=== PATIENT | female | born 1980 | race Two or more races ===

== ENCOUNTER 2023-06-04 18:44 | Emergency (ER) | payer MEDICAID ==
[~2023-06-04] VITALS: Ht 172.7 cm; Wt 112.0 kg
[2023-06-04 19:48] LABS: Basophils # (auto) 0 10 ^3/uL (0-0.2); Eosinophils # (auto) 0.1 10 ^3/uL (0-0.8); Hemoglobin 10.2 g/dL (12.2-16.2); Lymphocytes # (auto) 2.5 10 ^3/uL (0.4-5.4); Mean Corpuscular Hgb Conc. 30.3 g/dL (32.0-36.0); Monocytes # (auto) 0.6 10 ^3/uL (0-1.3); Nucleated Red Blood Cells % 0.1 %
[2023-06-04 19:50] LABS: Basophils % (auto) 0.5 % (0.0-2.0); Eosinophils % (auto) 1.5 % (0.0-7.0); Hematocrit 33.8 % (36.0-46.0); Lymphocytes % (auto) 34.3 % (10.0-50.0); Mean Corpuscular Hemoglobin 20.7 pg (28.0-32.0); Mean Corpuscular Volume 68.4 fL (80.0-100.0); Monocytes % (auto) 7.9 % (0.0-12.0); Neutrophils % (auto) 55.8 % (37.0-80.0); Red Blood Cells 4.94 10^6/uL (4.0-5.20); White Blood Cell 7.2 10^3/uL (4.4-10.8)
[2023-06-04 19:58] LABS: Alanine Aminotransferase 13 U/L (7-40); Albumin 4.3 g/dL (3.2-4.8); Alkaline Phosphatase 73 U/L (46-116); Anion Gap 8 (5-15); Aspartate Aminotransferase 14 U/L (13-40); BUN/Creatinine Ratio 17.1 (10.0-20.0); Blood Urea Nitrogen 12 mg/dL (9-23); Calcium 8.9 mg/dL (8.7-10.4); Carbon Dioxide 23 mmol/L (20-30); Chloride 108 mmol/L (98-107); Glucose 98 mg/dL (74-106); Potassium 4.2 mmol/L (3.5-5.1); Sodium 139 mmol/L (136-145)
[2023-06-04 19:59] LABS: Bilirubin, Total 0.3 mg/dL (0.2-1.0)
[2023-06-04] MEDS ORDERED: IBUPROFEN 600 MG TAB PO ONE (20:00)
[2023-06-04] MEDS ORDERED: HYDROcodone-ACET 5/325MG TAB PO ONE (20:00)
[2023-06-04 20:09] LABS: Urine Bacteria NONE SEEN /hpf (None Seen); Urine Blood 3+ /uL (Negative); Urine Clarity Clear (Clear); Urine Color Colorless (Yellow); Urine Mucus FEW (None Seen); Urine Protein, UAD Negative (Negative); Urine Urobilinogen Normal (Negative); Urine WBC 19 /hpf (0 - 5); Urine pH 5.5 (5.0-8.0)
[2023-06-04] MEDS ORDERED: ONDANSETRON ODT 4 MG TAB PO ONE (21:30)
[2023-06-04] MEDS ORDERED: DOCU-94 PO (21:35)
[2023-06-04] MEDS ORDERED: FERR324T4 PO (21:35)
[2023-06-04] MEDS ORDERED: MEDR5TAB28 PO (21:35)
[2023-06-04 21:47] VITALS: BP 148/80; PULSE 63; RESP 19; TEMP 98.2; O2SAT 97
[2023-06-04] MEDS ORDERED: AML5T PO (22:09)
== END 2023-06-04 21:54 | disposition home or self-care (01) ==
LOC: ER 18:44
DX: N93.8 Other specified abnormal uterine and vaginal bleeding (principal); R10.2 Pelvic and perineal pain; D64.9 Anemia, unspecified; I10 Essential (primary) hypertension; Z98.51 Tubal ligation status; Z32.02 Encounter for pregnancy test, result negative
CPT/HCPCS: 36415; 76856; 80053; 81001; 81025; 84702; 85025; 86850; 86900; 86901; 99284; Q0162